=== PATIENT | female | born 1970 | race Caucasian/White ===

== ENCOUNTER 2025-01-11 14:33 | Emergency (ER) | payer BC, MEDICAID ==
[~2025-01-11] VITALS: Ht 165.1 cm; Wt 83.9 kg
[2025-01-11 14:38] VITALS: O2SAT 98
[2025-01-11] MEDS ORDERED: diphenhydrAMINE 50 MG/1 ML VIAL ONE (15:14)
[2025-01-11] MEDS ORDERED: HYDROMORPHONE 1 MG/1 ML DISP.SYRIN ONE (15:15)
[2025-01-11] MEDS: diphenhydrAMINE 50 MG/1 ML VIAL IM ONE (15:16)
[2025-01-11] MEDS: HYDROMORPHONE 1 MG/1 ML DISP.SYRIN IM ONE (15:17)
[2025-01-11] MEDS ORDERED: OXYC-133 PO (15:25)
== END 2025-01-11 16:57 | disposition home or self-care (01) ==
LOC: ER 14:33
DX: S22.088A Other fracture of T11-T12 vertebra, initial encounter for closed fracture (principal); F17.200 Nicotine dependence, unspecified, uncomplicated; R21 Rash and other nonspecific skin eruption; I10 Essential (primary) hypertension; Z88.5 Allergy status to narcotic agent; Z87.09 Personal history of other diseases of the respiratory system; Z87.39 Personal history of other diseases of the musculoskeletal system and connective tissue; Z88.8 Allergy status to other drugs, medicaments and biological substances; W22.09XA Striking against other stationary object, initial encounter; Y93.E1 Activity, personal bathing and showering; Y92.091 Bathroom in other non-institutional residence as the place of occurrence of the external cause; Y99.8 Other external cause status
CPT/HCPCS: 99285; 72128; 72131; 96372 ×2; J1200; J1171; A4606; A4663